=== PATIENT | female | born 1960 | race Caucasian/White ===

== ENCOUNTER 2020-02-23 10:12 | Emergency (ER) | payer OTHER, SELFPAY ==
[2020-02-23 10:15] VITALS: BP 138/87; PULSE 75; RESP 16; TEMP 36.8; O2SAT 98
--- NOTE | 2020-02-23 10:33 | ED.FEMALEGU ---
HPI - Female Genitourinary General Chief complaint: Urogenital-Female Stated complaint: POS UTI History of Present Illness HPI Narrative: This is a 60 year old female that comes in complaining of painful urination with frequency and she noticed blood in her urine and she is not able to get in to the doctors until tomorrow but she is not able to wait that long. No fever nausea Related Data Home Medications Medication Instructions Recorded Confirmed amlodipine 02/23/20 aspirin 02/23/20 atorvastatin 02/23/20 losartan-hydrochlorothiazide tablet 02/23/20 magnesium oxide 02/23/20 potassium chloride meq PO 02/23/20 ranitidine HCl 02/23/20 Allergies Allergy/AdvReac Type Severity Reaction Status Date / Time ibuprofen Allergy Unknown Rash Unverified 06/07/15 08:43 Review of Systems Review of Systems: Narrative: CONSTITUTIONAL: Denies fever, chills, or sweats. EYES: Denies visual changes, redness, or discharge. ENT: Denies rhinorrhea, congestion, sore throat, or otalgia. CARDIOVASCULAR:Denies chest pain, palpitations, or edema. RESPIRATORY: Positive cough or dyspnea. GASTROINTESTINAL: Denies abdominal pain, nausea, vomiting, or diarrhea. GENITOURINARY: Denies dysuria or hematuria. SKIN:[Denies rash or itching. MUSCULOSKELETAL:Denies back pain, joint pain, or myalgia. NEUROLOGIC: Denies headache, numbness, or weakness. PSYCHIATRIC:Denies anxiety or depression PMFSH Comments At time as signature, I have reviewed and agree with nursing past medical, social, surgical and family history. Please see nursing chart for further information. There is no relevant family history pertinent to the presenting complaint. Exam Narrative: Exam Narrative: GENERAL:Well-appearing, well-nourished, and in no acute distress. HEAD:Normocephalic, atraumatic. EYES: PERRLA and EOMI. ENT: Nares clear, no rhinorrhea or epistaxis. Mucous membranes moist. NECK: Supple. CHEST: Clear to auscultation. No respiratory distress. HEART: Regular rate and rhythm. No murmur heard. Normal peripheral pulses. ABDOMEN: Soft, nontender, nondistended, normal active bowel sounds. Frequency and dysuria with hematuria EXTREMITIES: Normal range of motion. No edema. SKIN: Warm, dry, no rash. NEURO: No focal deficits. Alert and oriented x3. Course Vital Signs Vital signs: Vital Signs Temperature 98.3 F 02/23/20 10:15 Pulse Rate 75 02/23/20 10:15 Respiratory Rate 16 02/23/20 10:15 Blood Pressure 138/87 02/23/20 10:15 Pulse Oximetry 98 02/23/20 10:15 Temperature 98.3 F 02/23/20 10:15 Pulse Rate 75 02/23/20 10:15 Respiratory Rate 16 02/23/20 10:15 Blood Pressure 138/87 02/23/20 10:15 Pulse Oximetry 98 02/23/20 10:15 MDM - Female Genitourinary Differential Diagnosis Differential diagnosis: Likely urinary tract infection, cervicitis, vaginitis and dysmenorrhea Lab Data Labs: Urine Glucose Negative Reference Range: Negative Urine Bilirubin Negative Reference Range: Negative Urine Ketone Negative Reference Range: Negative Urine Specific [place] 1.025 Reference Range:1.001-1.035 Urine Blood 3+ Reference Range: Negative * * Urine pH 7.0 Reference Range: 5.0-9.0 Urine Protein 2+ Reference Range: Negative Urine Urobilinogen 0.2 Reference Range: 0.2-1.0 Urine Nitrate Negative Reference Range: Negative Urine Leukocyte 2+ Reference Range: Negative Urine Color Red Reference Range: Yellow Urine Characteristics Cloudy Discharge Plan Discharge Clinical Impression: Urinary tract infection Qualifiers: Urinary tract infection type: site unspecified Hematuria pres
== END 2020-02-23 10:42 | disposition home or self-care (01) ==
PROVIDERS: Emergency Provider Nurse Practitioner Family
DX: N39.0 Urinary tract infection, site not specified (principal); E78.00 Pure hypercholesterolemia, unspecified; I10 Essential (primary) hypertension
CPT/HCPCS: 81003; 87077; 87086; 87088; 87186; 99213; G0463

== ENCOUNTER 2023-08-05 14:25 | Outpatient (CLI) | payer MEDICARE, OTHER, SELFPAY ==
[2023-08-05 14:39] LABS: Basophils Absolute Auto 0.1 K/mm3 (0.0-0.1); Basophils Percent Auto 0.5 % (0.2-1.2); Eosinophils Absolute Auto 0.1 K/mm3 (0-0.3); Eosinophils Percent Auto 0.6 % (0-4.4); Hematocrit 38.8 % (37.0-47.0); Hemoglobin 12.8 g/dL (12.0-15.0); Immature Granulocyte Absolute 0.04 K/mm3 (0.00-0.031); Immature Granulocyte Percent A 0.3 % (0-0.5); Lymphocytes Absolute Auto 8.61 K/mm3 (0.9-3.2); Lymphocytes Percent Auto 69.7 % (18.3-44.2); Mean Corpuscular Hemoglobin 28.9 pg (26-34); Mean Corpuscular Volume 87.6 fl (80-100); Mean Platelet Volume 10.2 fl (7.4-10.4); Monocytes Absolute Auto 0.7 K/mm3 (0.1-0.6); Monocytes Percent Auto 5.6 % (2.6-8.5); Neutrophils Absolute Auto 2.9 K/mm3 (1.3-6.7); Neutrophils Percent Auto 23.3 % (45.5-73.1); Platelet Count Result 171 k/mm3 (150-375); Red Blood Count 4.43 M/mm3 (4.2-5.4); Red Cell Distribution Width 13.5 % (11.5-14.5); White Blood Count 12.4 K/mm3 (4.5-10.0)
[2023-08-05 14:54] LABS: Platelet Estimate Adequate (Adequate); Schistocytes None Seen (NORMAL)
[2023-08-05 14:55] LABS: Atypical Lymphocytes Present
[2023-08-05 18:13] LABS: Alanine Aminotransferase 28 U/L (6-35); Albumin Level 4.2 g/dL (3.5-5.1); Alkaline Phosphatase 85 U/L (38-126); Anion Gap 6 mmol/L (8-16); Aspartate Amino Transferase 40 U/L (14-36); Bilirubin,Total 0.5 mg/dL (0.2-1.3); Blood Urea Nitrogen 25 mg/dL (7-17); Calcium 8.8 mg/dL (8.4-10.2); Carbon Dioxide 31 mmol/L (22-30); Chloride 101 mmol/L (98-107); Estimated Glomerular Filt Rate > 60; Glucose 105 mg/dL (65-110); Lactate Dehydrogenase 295 U/L (120-246); Potassium 3.1 mmol/L (3.4-5.0); Sodium 138 mmol/L (137-145)
== END 2023-08-05 14:26 | disposition home or self-care (01) ==
LOC: ANHLAB 14:28
PROVIDERS: Visit Provider Internal Medicine Hematology & Oncology
DX: R59.1 Generalized enlarged lymph nodes (principal)
CPT/HCPCS: 36415; 80053; 83615; 85025; 88184; 88185; 88237; 88271; 88275

== ENCOUNTER 2023-08-13 13:31 | Outpatient (CLI) | payer MEDICARE, OTHER, SELFPAY ==
--- NOTE | ~2023-08-13 | CT_ITS ---
Clinical Indication: Lymphadenopathy CT Scan of the Neck and Chest with Contrast: Technique: Contiguous sections were acquired throughout the neck and chest after intravenous administ ration of 75 cc of Omnipaque 350. Dose reduction technique was used on this scan by utilizing automat ed exposure control and iterative reconstruction technique. The dose-length product (DLP) was 1049.24 mGy-cm. Findings: There are numerous shotty to mildly enlarged cervical and supraclavicular lymph nodes, largest node i n the right side posterior neck measuring 1.8 x 1.2 cm (series 3 image 44). Parotid and submandibular glands are unremarkable. Parapharyngeal fat preserved. No abnormal fluid co llection seen. Vascular structures enhance normally. Bilateral thyroid nodules are present. There is bilateral axillary/subpectoral lymphadenopathy, with largest node probably in the right subp ectoral region measuring 2.6 x 1.8 cm. No mediastinal/hilar lymphadenopathy evident. No definite larg e central pulmonary embolus evident. There is no evidence of aortic dissection or aneurysm. There is no evidence of pleural or pericardial effusion. There is a 6 mm right middle lobe pulmonary nodule. There is vague focal groundglass opacity in the c entral/medial right middle lobe (series 7 image 71. There is amorphous groundglass opacity in the per ipheral left upper lobe (series 7 images 56-63). Images through the upper abdomen reveal no abnormalities. Impression: Numerous enlarged lymph nodes bilaterally in the neck, sternoclavicular regions, and the bilateral ax illa. Findings could reflect lymphoma or other metastatic disease, or possibly reactive/inflammatory nodes. Correlate with any relevant clinical history. Consider tissue sampling to establish histologic diagnosis. Groundglass opacity in the peripheral left upper lobe, in focally in the right middle lobe. Focal are as of pneumonitis are considerations. 6 mm right middle lobe pulmonary nodule, indeterminate. According to Fleischner Society criteria, for a low-risk patient, no further follow-up required. For a high-risk patient, 12 month follow-up CT sh ould be considered. Reviewed, dictated and finalized at location M. Impression: Numerous enlarged lymph nodes bilaterally in the neck, sternoclavicular regions , and the bilateral axilla. Findings could reflect lymphoma or other metastatic disease, or possibly reactive/inflammatory nodes. Correlate with any relevant clinical history. Consider tissue sampling to establish histologic diagnosis. Groundglass opacity in the peripheral left upper lobe, in focally in the right middle lobe. Focal areas of pneumonitis are considerations. 6 mm right middle lobe pulmonary nodule, indeterminate. According to Fleischner Society criteria, for a low-risk patient, no further follow-up required. For a high-risk patient, 12 month follow-up CT should be considered.
== END 2023-08-13 13:32 | disposition home or self-care (01) ==
PROVIDERS: Visit Provider Internal Medicine Hematology & Oncology
DX: R59.1 Generalized enlarged lymph nodes (principal); R91.8 Other nonspecific abnormal finding of lung field
CPT/HCPCS: 70491; 71260; Q9967

== ENCOUNTER 2023-08-29 15:33 | Outpatient (CLI) | payer MEDICARE, OTHER, SELFPAY ==
--- NOTE | ~2023-08-29 | CT_ITS ---
EXAMINATION: CT abdomen pelvis w con DATE: 08/29/2023 16:02 INDICATION: Chronic lymphocytic leukemia TECHNIQUE: Computed tomography (CT) of the abdomen and pelvis was performed with 100 cc Omnipaque 350 intravenous contrast. The dose-length product was 1113.06 mGy-cm. Automated exposure control and ite rative reconstruction technique were employed. COMPARISON: CT dated 08/13/2023. FINDINGS: Stable 6 mm right middle lobe nodule, indeterminate. Heart size normal. No significant pleu ral or pericardial effusion. Spleen is enlarged. The liver, pancreas, adrenal glands and right kidney are unremarkable. There are low-density lesions in the left kidney, most likely benign cysts. No sig nificant hydronephrosis. Bladder is decompressed. There are enlarged lymph nodes in the portacaval, p eriaortic, common iliac, external iliac and bilateral inguinal lymph nodes, consistent with known CLL . No free fluid or free air. There is grade 1 degenerative spondylolisthesis at L4-5. There is a urac roman remnant of the bladder. Mild lumbar spondylosis. IMPRESSION: 1. Abdominal and pelvic lymphadenopathy, consistent with known CLL. 2: Splenomegaly. 3: Indeterminate 6 mm right middle lobe nodule unchanged. Consider follow-up low dose CT chest in 12 months. Reviewed, dictated and finalized at location A. IMPRESSION: 1. Abdominal and pelvic lymphadenopathy, consistent with known CLL. 2: Splenomegaly. 3: Indeterminate 6 mm right middle lobe nodule unchanged. Consider follow-up lo w dose CT chest in 12 months.
== END 2023-08-29 15:34 | disposition home or self-care (01) ==
LOC: ANHIMG 15:37
PROVIDERS: Visit Provider Internal Medicine Hematology & Oncology
DX: C91.10 Chronic lymphocytic leukemia of B-cell type not having achieved remission (principal); R16.1 Splenomegaly, not elsewhere classified; R91.1 Solitary pulmonary nodule
CPT/HCPCS: 74177; Q9967

== ENCOUNTER 2024-02-09 00:23 | Day surgery (SDC) | payer MEDICARE, OTHER, SELFPAY ==
[2024-01-29 12:49] VITALS: BMI 34.1
--- NOTE | 2024-02-06 08:45 | SUR.PREOP ---
Patient called regarding upcoming procedure. Reviewed preop instructions, appointment times, and procedure prep.
[2024-02-09 12:28] VITALS: BP 153/97; PULSE 71; RESP 16; TEMP 36.3; O2SAT 99; BMI 33.4
--- NOTE | 2024-02-09 12:41 | PM.HPGS ---
History of Present Illness History of Present Illness Consent: Risks, benefits, and alternatives have been discussed and questions answered. Patient agrees to proceed with procedure. Chief complaint: neoplasm screening Narrative: Leanne Carranza is a 63 year old female with history of colon polyp, last one 5 years ago Review of Systems Review of Systems: All systems reviewed & are unremarkable except as noted in HPI and below PMFSH Past Medical History Medical History (Updated 02/09/24 @ 12:45 by Dax Casey MD) Colon polyp Social History Social History Living arrangements: with family Spiritual care concerns: No Meds Home Medications and Allergies Home Medications Medication Instructions Recorded Confirmed Type amlodipine 5 mg tablet 5 mg PO DAILY 02/23/20 02/09/24 History aspirin 81 mg tablet,delayed 81 mg PO DAILY 02/23/20 02/09/24 History release losartan 100 1 tablet PO DAILY 02/23/20 02/09/24 History mg-hydrochlorothiazide 25 mg tablet magnesium oxide 400 mg (241.3 mg 400 mg PO DAILY 02/23/20 02/09/24 History magnesium) tablet potassium chloride 10 mEq 10 meq PO PRN 02/23/20 02/09/24 History tablet,extended release(part/cryst) ranitidine HCl 150 mg tablet 150 mg PO DAILY 02/23/20 02/09/24 History doxycycline hyclate 20 mg tablet 20 mg PO DAILY 01/29/24 02/09/24 History rosuvastatin 20 mg tablet 20 mg PO DAILY 01/29/24 02/09/24 History ondansetron HCl 4 mg tablet 4 mg PO Q6H PRN Nausea And 02/03/24 Rx Vomiting #4 tabs Allergies Allergy/AdvReac Type Severity Reaction Status Date / Time ibuprofen Allergy Unknown Rash Verified 02/09/24 12:33 tramadol Allergy Itching Verified 02/09/24 12:33 Vital Signs Vital Signs - 24 hr 02/09/24 12:28 Temperature 97.4 F L Pulse Rate 71 Respiratory Rate 16 Blood Pressure 153/97 H Pulse Oximetry 99 Oxygen Delivery Room Air Exam Const: General: comfortable and no acute distress HENMT: Face/Nose/Sinus: Normal nares present Eyes: General: appearance normal, both eyes and all related structures Neck: Neck: no JVD Resp: Auscultation: clear to auscultation bilaterally Cardio: Rate: regular rate Rhythm: regular rhythm GI: Inspection: non-distended GI Palp: Yes Soft to palpation Skin: General skin exam: normal color Neuro: General: gait normal Speech: normal speech Extrem: General: normal to inspection Psych: Mental Status: mental status grossly normal Assessment and Plan Assessment and plan (1) Colon polyp: Code(s): K63.5 - Polyp of colon Status: Acute Assessment and Plan: colonoscopy
--- NOTE | 2024-02-09 12:43 | P.PNAN_ITS ---
Anes - Initial Pre Proc Eval Procedure: Operation Date: 02/09/24 14:00 Proposed Procedures p Screening Colonoscopy - Dax Casey MD Date/Time: 02/09/24 12:43 Surgeon: Dax Casey MD Pre Op Diagnosis: neoplasm screening Patient Data Age: 63 Gender: F Height: 1.65 m Weight: 91.1 kg Last Vital Signs Temp 97.4 F L 02/09/24 12:28 Pulse 71 02/09/24 12:28 Resp 16 02/09/24 12:28 BP 153/97 H 02/09/24 12:28 Pulse Ox 99 02/09/24 12:28 O2 Del Method Room Air 02/09/24 12:28 Allergies Allergy/AdvReac Type Severity Reaction Status Date / Time ibuprofen Allergy Unknown Rash Verified 02/09/24 12:33 tramadol Allergy Itching Verified 02/09/24 12:33 Home Medications Medication Instructions Recorded Confirmed Type amlodipine 5 mg tablet 5 mg PO DAILY 02/23/20 02/09/24 History aspirin 81 mg tablet,delayed 81 mg PO DAILY 02/23/20 02/09/24 History release losartan 100 1 tablet PO DAILY 02/23/20 02/09/24 History mg-hydrochlorothiazide 25 mg tablet magnesium oxide 400 mg (241.3 mg 400 mg PO DAILY 02/23/20 02/09/24 History magnesium) tablet potassium chloride 10 mEq 10 meq PO PRN 02/23/20 02/09/24 History tablet,extended release(part/cryst) ranitidine HCl 150 mg tablet 150 mg PO DAILY 02/23/20 02/09/24 History doxycycline hyclate 20 mg tablet 20 mg PO DAILY 01/29/24 02/09/24 History rosuvastatin 20 mg tablet 20 mg PO DAILY 01/29/24 02/09/24 History ondansetron HCl 4 mg tablet 4 mg PO Q6H PRN Nausea And 02/03/24 Rx Vomiting #4 tabs Patient hx anesthesia problems: none Family hx anesthesia problems: none Results Review: All pre-operative results and documents have been reviewed as part of the pre- operative evaluation. PMFSH Social History Social History Living arrangements: with family Spiritual care concerns: No Anes - Eval Final PreProcedure Day of Procedure 02/09/24 12:43 Patient weight: obese Heart: regular rate and rhythm Lungs: clear to auscultation Airway: Mallampati scale class II Neurological: alert and oriented Last oral intake: >/= 8 hours ASA classification: III Emergent: no Anesthetic plan: proceed Anesthesia type and monitoring: general GIVS and standard monitoring Results Review: All pre-operative results and documents have been reviewed as part of the pre- operative evaluation. Informed Consent: The patient's anesthetic plan and its attendant risks and benefits were discussed with the patient/family/POA. Questions were solicited and answers provided to the satisfaction of the patient/family/POA.
[2024-02-09] MEDS: LACTATED RINGERS 1,000 ML 150 ML IV CONT (12:44)
[2024-02-09 13:01] VITALS: BP 89/56; PULSE 70; RESP 21; O2SAT 97
[2024-02-09 13:11] VITALS: BP 106/67; PULSE 68; RESP 19; O2SAT 98
[2024-02-09 13:21] VITALS: BP 117/67; PULSE 60; RESP 23; O2SAT 99
== END 2024-02-09 13:30 | disposition home or self-care (01) ==
PROVIDERS: Visit Provider Internal Medicine Gastroenterology
PROC: 0DJD8ZZ Inspection of Lower Intestinal Tract, Via Natural or Artificial Opening Endoscopic (ICD-10-PCS; CPT 45378; principal; 2024-02-09 14:00)
DX: Z12.11 Encounter for screening for malignant neoplasm of colon (principal); K64.8 Other hemorrhoids; K57.30 Diverticulosis of large intestine without perforation or abscess without bleeding; E66.9 Obesity, unspecified; Z68.33 Body mass index [BMI] 33.0-33.9, adult; Z79.82 Long term (current) use of aspirin; Z86.010 Personal history of colon polyps
CPT/HCPCS: G0105; J2704; J7120